=== PATIENT | female | born 1980 | race Caucasian/White ===

== ENCOUNTER → 2017-04-18 | Outpatient (CLI) | payer OTHER | LOC: FIMAGING 07:56 | PROVIDERS: ATTEND Advanced Practice Midwife | DX: O43.892 Other placental disorders, second trimester (principal); Z3A.22 22 weeks gestation of pregnancy ==

== ENCOUNTER 2017-08-21 10:56 | Inpatient (IN) | payer OTHER ==
[2017-08-21] MEDS ORDERED: LR 1,000 ML IV PRN (11:31)
[2017-08-21] MEDS ORDERED: OLIVE OIL 118 ML BTL MISC PRN (11:31)
[2017-08-21] MEDS ORDERED: EPSOM SALT 454 GM TP PRN (11:31)
[2017-08-21] MEDS ORDERED: OXYTOCIN 20 UNIT in LR 1,000 ML IV PRN (11:31)
[2017-08-21] MEDS ORDERED: TERBUTALINE SULFATE 1 MG/ML VIAL IV PRN (11:31)
[2017-08-21] MEDS ORDERED: OLIVE OIL 118 ML BTL ONE (13:10)
[2017-08-21] MEDS ORDERED: LIDOCAINE 1% 300 MG/30 ML SDV ONE (13:10)
[2017-08-21] MEDS ORDERED: AMMONIA AROMATIC 1 EACH AMP IH ONE (13:10)
[2017-08-21] MEDS ORDERED: MISOPROSTOL 200 MCG TAB ONE (13:11)
[2017-08-21] MEDS ORDERED: OXYTOCIN 10 UNIT/ML VIAL ONE (13:11)
[2017-08-21 13:16] LABS: PLATELET COUNT 226 10^3/uL (150-400)
--- NOTE | 2017-08-21 13:25 | GHP ---
[f rep st] PREOP HISTORY AND PHYSICAL DATE OF ADMISSION: 08/21/2017 ADMITTING DIAGNOSIS: Intrauterine at 40 weeks' gestation in active labor. HISTORY OF PRESENT ILLNESS: The patient is a 36-year-old 2, para 1-0-0- 1, with a last menstrual period of 11/14/2016 and an EDC of 08/21/2017, consistent with a 9-week ultrasound. She has had good care at [facility] since establishment at 16 weeks. She had 1 visit previously to establish her . Her risk factors include decreased immunity to rubella, Rh negative, a history of depression and anxiety, and PTSD (no current medications), and a history of an MRSA infection; not current. No other risk factors. She has had a normal with normal anatomy ultrasound, normal labs in this , and she has progressed to 40 weeks. Early in the morning on the , she began having contractions which increased in frequency and intensity. She describes a gush of fluid at 9 a.m. with some leakage since and vaginal bleeding. Currently, she was assessed. She is having contractions every 2-3 minutes and cervix is 4 cm, 90%, -1 with a bulging bag of water. Patient will be admitted in active labor. Patient, as of now, desires to have natural labor approach, but is open to pain medicine if needed. PAST OBSTETRICAL HISTORY: In June 2015 she had a viable female, 41 weeks, 5 pounds 11 ounces, vaginal delivery of 5 hours. Patient did have meconium and had an episiotomy during that labor. No other complications. This is her second . No past gynecological problems. This is a spontaneous . She has used oral contraceptive pills in the past. PAST MEDICAL HISTORY: Significant for depression in college and some anxiety. She has PTSD after a trauma, but she is not on any current medication and no problems other than that. She has a history of an MRSA infection in 2016; she had a brown recluse spider bite and was treated for that. PAST SURGICAL HISTORY: Only tonsillectomy. ALLERGIES: No known drug allergies. MEDICATIONS: Include vitamins, magnesium, vitamin D, vitamin B, and DHA. LABORATORY DATA: She is O negative, antibody negative, RPR nonreactive, rubella low immune, hepatitis negative, HIV negative. Pap normal. Gonorrhea and chlamydia negative. 1-hour GTT 85. GBS was negative. REVIEW OF SYSTEMS: Negative except for labor symptoms as above. SOCIAL HISTORY: She is . She lives with her and her daughter. She works at a dentist's office. She denies tobacco, alcohol, and drug use. FAMILY HISTORY: Maternal grandmother had adult-onset diabetes and a stroke. Maternal aunt has MS. Father is an alcoholic and that is all. OBJECTIVE: Currently heart tones are 140s, reactive, moderate variability , category 1. She is dorene every 2-3 minutes. Cervix 4, 90, -2, and bulging bag of water. ASSESSMENT AND PLAN: A 36-year-old 2, para 1-0-0-1, at exactly 40 weeks ' gestation in active labor. Patient is admitted for active labor management. Patient desires expectant management for now; may consider an epidural for pain control at a later time. /[id number]/MODL MTDD
[2017-08-21] MEDS: IBUPROFEN 600 MG TAB PO PRN ×2 (14:11→20:29)
[2017-08-21] MEDS ORDERED: HYDROCODONE/APAP 5/325 TAB PO PRN (14:16)
[2017-08-21] MEDS ORDERED: HYDROCORTISONE 0.5% CREAM TP PRN (14:16)
[2017-08-21] MEDS ORDERED: ACETAMINOPHEN 325 MG TAB PO PRN (14:16)
[2017-08-21] MEDS ORDERED: DOCUSATE SODIUM 100 MG CAP PO PRN (14:16)
[2017-08-21] MEDS ORDERED: SIMETHICONE 80 MG TAB CHEW PO PRN (14:16)
--- NOTE | 2017-08-21 14:20 | OBDEL ---
Info Type: Vaginal Presentation at Delivery: Vertex L&D Analgesia/Anesthesia Type: None GBS+: No Intrapartum Medications: Generic Name Dose Route Start Last Admin Trade Name Freq PRN Reason Stop Dose Admin Ibuprofen 600 mg 08/21/17 11:31 08/21/17 14:11 Motrin PO 02/17/18 11:30 600 mg Q6HRS PRN Administration post , inflammation - Infant Care Provider Sports Leadership Instructor/NATURAL HISTORY COLLECTIONS CURATOR: Kelsi Goff Indications for Delivery: Spontaneous Labor Vaginal Delivery - Delivery Provider Delivery Physician/CNM: Alyson Devries - Labor and Delivery Onset of Contractions Date: 08/21/17 Onset of Contractions Time: 08:00 Onset of Contractions Type: Spontaneous Rupture of Membranes Date: 08/21/17 Rupture of Membranes Time: 13:10 Rupture of Membranes Type: Spontaneous Amniotic Fluid Color: Clear Dilation Complete Date: 08/21/17 Dilation Complete Time: 13:30 Placenta Delivery Date: 08/21/17 Placenta Delivery Time: 13:40 Total Hours of Labor: 5 Laceration: Other (Specify) (intact perineum) Vaginal Sponge Count Correct: Yes Vaginal Needle Count Correct: Yes Vaginal Sweep Performed: No EBL: 150 Delivery Events: None - Medications Labor Augmentation/Induction Methods Used: None Data SARAH: 08/21/17 Gestational Age: 40 week(s) and 0 day(s) Junior Delivery Date: 08/21/17 Delivery Time: 13:34 Sex of : Male Score (1 Min): 5 Score (5 Min): 9 ICD10 Worksheet Patient Problems: Problems Problem Status Onset (spontaneous vaginal delivery) Acute - ICD10 Problem Qualifiers (1) (spontaneous vaginal delivery)
[2017-08-22] MEDS: IBUPROFEN 600 MG TAB PO PRN ×2 (04:03→09:44)
--- NOTE | 2017-08-22 08:17 | OBPP ---
Progress Note Assessment/Plan: Assessment: 1) s/p PPD # 1 - pt is stable 2) Rh negative - s/p RhoGam Plan: Continue routine pp care Discharge home if baby boy is discharged Instructions reviewed with pt No Rx given Cont PNV and colace Pelvic rest RTC in 4 and 6 weeks for pp visit 08/22/17 08:18 Subjective/ Course: 08/22/17 08:18 Pt seen and examined. Doing well with no complaints. Some cramping this am, relief with Motrin. Mod lochia. Pt is OOB, brandi regular diet, voiding without difficulty, and passing flatus. No BM yet. BF without difficulty. Wants to go home today. Objective: 08/21/17 12:55 Patient ABO/Rh O NEGATIVE 08/21/17 17:10 Temp Pulse Resp BP Pulse Ox 36.1 C 89 18 103/63 96 08/21/17 20:10 08/21/17 20:10 08/21/17 20:10 08/21/17 20:10 08/21/17 20:10 Uterine Position/Fundal Height: Umbilicus -2 Uterine Tone: Firm Physical Exam - Physical Exam Respiratory: lungs clear, normal breath sounds Cardiac/Chest: regular rate, rhythm Abdomen: non-tender, soft, flatus (+) Extremities: non-tender, normal inspection Skin: normal color, warm/dry Neuro/Psych: alert, normal mood/affect, oriented x 3
--- NOTE | 2017-08-22 08:22 | OBGCSDC ---
General Delivery Information - General Info : 2 Para: 2 Abortions: 0 Type: Vaginal L&D Analgesia/Anesthesia Type: None Admission Date: 08/21/17 Labs: Patient ABO/Rh O NEGATIVE 08/21/17 17:10 Hct 41.1 % (38.0-47.0) 08/21/17 12:55 - Hospital Course : 08/22/17 08:18 Pt seen and examined. Doing well with no complaints. Some cramping this am, relief with Motrin. Mod lochia. Pt is OOB, brandi regular diet, voiding without difficulty, and passing flatus. No BM yet. BF without difficulty. Wants to go home today. Vaginal - Delivery Provider Delivery Physician/CNM: Alyson Devries - Diagnosis Labor: Spontaneous Rupture of Membranes Type: Spontaneous Amniotic Fluid Color: Clear Laceration: Other (Specify) (intact perineum) Delivery Events: None - Delivery EBL: 150 Data SARAH: 08/21/17 Gestational Age: 40 week(s) and 1 day(s) Junior Delivery Date: 08/21/17 Delivery Time: 13:34 Sex of Infant: Male Score (1 Min): 5 Score (5 Min): 9 Discharge Information - Discharge Information Condition: Good Instruction/Follow Up: Four Weeks, Six Weeks
[2017-08-22 09:20] VITALS: BP 102/69; PULSE 70; RESP 17; TEMP 97.9; O2SAT 97
== END 2017-08-22 15:30 | disposition home or self-care (01) | DRG 775 ==
LOC: FLD 10:56 → FOB 16:58
PROVIDERS: ADMIT Obstetrics & Gynecology; ATTEND Obstetrics & Gynecology
DX: O48.0 Post-term pregnancy (principal); O26.893 Other specified pregnancy related conditions, third trimester; Z67.91 Unspecified blood type, Rh negative; Z86.14 Personal history of Methicillin resistant Staphylococcus aureus infection; Z37.0 Single live birth